=== PATIENT | male | born 1960 | race African-American/Black ===

== ENCOUNTER 2018-11-15 10:23 | Inpatient (IN) ==
[2018-11-15] MEDS ORDERED: ONDANSETRON 4 MG/2 ML VIAL ONE (10:37)
[2018-11-15] MEDS ORDERED: DILTIAZEM 25 MG/5 ML VIAL IV ONE ×2 (10:37→10:41)
[2018-11-15] MEDS ORDERED: dilTIAZem Drip 125 MG/125 ML PREMIX IV ONE (10:43)
[2018-11-15] MEDS ORDERED: SODIUM CHLORIDE 0.9% 1,000 ML IV STA (10:47)
[2018-11-15] MEDS ORDERED: ONDANSETRON 4 MG/2 ML VIAL IV STA (10:47)
[2018-11-15] MEDS ORDERED: DILTIAZEM 50 MG/10 ML VIAL IV STA (10:47)
[2018-11-15] MEDS ORDERED: dilTIAZem Drip 125 MG/125 ML PREMIX IV SCH (11:00)
[2018-11-15 11:13] LABS: Basophils # 0.1 10*3/uL (0.0-0.2); Basophils % 0.6 % (0.0-0.8); Eosinophils # 0.3 10*3/uL (0.0-0.87); Eosinophils % 3.1 % (0.00-10.9); Hematocrit 55.4 VOL% (42.0-52.0); Hemoglobin 17.5 GM/DL (14.0-18.0); Immature Granulocytes % 0.4 %; Immature Granulocytes Absolute 0.04 #; Lymphocytes # 2.7 10*3/uL (1.4-4.0); Lymphocytes % 26.5 % (21.2-54.2); Mean Corpuscular HGB Conc 31.6 GM/DL (32-36); Mean Corpuscular Volume 83.6 FL (87-102); Mean Platelet Volume 11.9 FL (9.6-12.0); Neutrophils % 64.4 % (38.7-73.9); Platelet Count 212 T/CUMM (130-400); Red Blood Count 6.63 MC/CUMM (3.8-5.5); Red Cell Distribution Width 16.1 % (9.3-17.3); White Blood Count 10.1 T/CUMM (4-12)
[2018-11-15 11:19] LABS: INR 1.2; PT Patient Result 13.4 SECS (9.6-12.2); Partial Thromboplastin Time 28.9 SECS (20.8-36.0)
[2018-11-15] MEDS ORDERED: ACETAMINOPHEN 325 MG TABLET PO PRN (11:29)
[2018-11-15] MEDS ORDERED: DOCUSATE SODIUM 100 MG CAPSULE PO PRN (11:29)
[2018-11-15] MEDS ORDERED: MAGNESIUM SULF RIDER 4 GM in PREMIX 1 EACH IV PRN (11:29)
[2018-11-15] MEDS ORDERED: ZALEPLON 5 MG CAPSULE PO PRN (11:29)
[2018-11-15] MEDS ORDERED: MAGNESIUM SULF RIDER 2 GM in PREMIX 1 EACH IV PRN (11:29)
[2018-11-15 11:36] LABS: Alanine Aminotransferase 47 U/L (16-61); Albumin 3.7 G/DL (3.4-5.0); Alkaline Phosphatase 49 U/L (45-117); Aspartate Amino Transferase 30 U/L (0-37); Blood Urea Nitrogen 24 MG/DL (7-18); Calcium 9.3 MG/DL (8.5-10.1); Estimated Glom Filtration Rate 64 ML/MIN; Glucose 121 MG/DL (74-106); Osmolality,Calculated 290.8 MOS/KG (273-304); Total Protein 7.6 G/DL (6.4-8.3); Troponin I 0.027 NG/ML (0.00-0.045)
[2018-11-15] MEDS ORDERED: INFLUENZA VIRUS VACCINE 0.5 ML SYRINGE IM ONE (12:41)
[2018-11-15] MEDS: ALBUTEROL/IPRATROPIUM 3 ML NEB RESP TX SCH ×3 (14:09→19:21)
[2018-11-15] MEDS ORDERED: AMIODARONE INJ 150 MG in DEXTROSE 5% 100 ML IV ONE (17:02)
[2018-11-15] MEDS ORDERED: AMIODARONE 150 MG/3 ML VIAL ONE ×2 (17:02→17:03)
[2018-11-15] MEDS ORDERED: AMIODARONE 450 MG/9 ML VIAL IV ONE (17:03)
[2018-11-15] MEDS ORDERED: DIGOXIN 0.5 MG/2 ML AMP IV ONE (17:05)
[2018-11-15] MEDS ORDERED: AMIODARONE INJ 450 MG in DEXTROSE 5% 241 ML IV SCH ×2 (17:30→23:30)
[2018-11-15] MEDS ORDERED: DIGOXIN 0.5 MG/2 ML AMP IV PRN (18:00)
[2018-11-15] MEDS: LATANOPROST 0.005% OPH SOLN 2.5 ML BOTTLE BOTH EYES SCH (22:32)
[2018-11-16 03:18] LABS: Basophils # 0.1 10*3/uL (0.0-0.2); Basophils % 0.6 % (0.0-0.8); Eosinophils # 0.4 10*3/uL (0.0-0.87); Eosinophils % 3.8 % (0.00-10.9); Hemoglobin 15.5 GM/DL (14.0-18.0); Immature Granulocytes % 0.2 %; Immature Granulocytes Absolute 0.02 #; Lymphocytes # 2.2 10*3/uL (1.4-4.0); Mean Corpuscular Volume 83.8 FL (87-102); Mean Platelet Volume 11.3 FL (9.6-12.0); Monocytes % 8.1 % (1.7-12.7); Neutrophils % 64.3 % (38.7-73.9); Platelet Count 175 T/CUMM (130-400); Red Blood Count 5.97 MC/CUMM (3.8-5.5); Red Cell Distribution Width 15.3 % (9.3-17.3); White Blood Count 9.4 T/CUMM (4-12)
[2018-11-16 03:42] LABS: Calcium 8.6 MG/DL (8.5-10.1); Osmolality,Calculated 287.8 MOS/KG (273-304)
[2018-11-16 03:48] LABS: Free T4 (Free Thyroxine) 1.06 NG/DL (0.76-1.46)
[2018-11-16 04:30] LABS: Barbiturates Screen,Urine Negative (Negative); Benzodiazepines Screen,Urine Negative (Negative); Cannabinoid Screen,Urine Negative (Negative); Opiate Screen,Urine Negative (Negative); Phencyclidine Screen,Urine Negative (Negative)
[2018-11-16] MEDS: FUROSEMIDE 40 MG TABLET PO SCH ×2 (07:15→13:00)
[2018-11-16] MEDS: ALBUTEROL/IPRATROPIUM 3 ML NEB RESP TX SCH ×4 (07:22→19:45)
[2018-11-16] MEDS: METOPROLOL SUCCINATE XL 100 MG TABLET PO SCH (08:36)
[2018-11-16] MEDS: PANTOPRAZOLE 40 MG TABLET PO SCH (08:36)
[2018-11-16] MEDS: CHOLECALCIFEROL 1,000 UNIT TABLET PO SCH (08:36)
[2018-11-16] MEDS: AMIODARONE 200 MG TABLET PO SCH ×2 (08:48→20:21)
[2018-11-16] MEDS ORDERED: hydrALAZINE 25 MG TABLET PO PRN (08:49)
[2018-11-16] MEDS ORDERED: lisinopriL 20 MG TABLET PO SCH (09:00)
[2018-11-16] MEDS ORDERED: RIVAROXABAN 20 MG TABLET PO SCH (09:00)
[2018-11-16] MEDS ORDERED: DABIGATRAN 150 MG CAPSULE PO SCH (09:00)
[2018-11-16] MEDS ORDERED: AMIODARONE 200 MG TABLET PO SCH (09:00)
[2018-11-16] MEDS: DIGOXIN 0.25 MG TABLET PO SCH ×2 (09:09→15:30)
[2018-11-16] MEDS ORDERED: DIGOXIN 0.125 MG TABLET PO SCH (13:00)
[2018-11-16] MEDS: LATANOPROST 0.005% OPH SOLN 2.5 ML BOTTLE BOTH EYES SCH (20:22)
[2018-11-17] MEDS: FUROSEMIDE 40 MG TABLET PO SCH ×2 (06:19→13:29)
[2018-11-17] MEDS: ALBUTEROL/IPRATROPIUM 3 ML NEB RESP TX SCH ×4 (07:57→19:44)
[2018-11-17] MEDS: METOPROLOL SUCCINATE XL 100 MG TABLET PO SCH (08:38)
[2018-11-17] MEDS: DABIGATRAN 150 MG CAPSULE PO SCH ×2 (08:38→21:12)
[2018-11-17] MEDS: CHOLECALCIFEROL 1,000 UNIT TABLET PO SCH (08:38)
[2018-11-17] MEDS: AMIODARONE 200 MG TABLET PO SCH ×2 (08:39→21:12)
[2018-11-17] MEDS: PANTOPRAZOLE 40 MG TABLET PO SCH (08:39)
[2018-11-17] MEDS ORDERED: DIGOXIN 0.125 MG TABLET PO SCH (13:00)
[2018-11-17] MEDS: LATANOPROST 0.005% OPH SOLN 2.5 ML BOTTLE BOTH EYES SCH (21:13)
[2018-11-18 04:52] LABS: Basophils # 0.1 10*3/uL (0.0-0.2); Basophils % 0.6 % (0.0-0.8); Eosinophils # 0.4 10*3/uL (0.0-0.87); Hematocrit 53.4 VOL% (42.0-52.0); Hemoglobin 16.8 GM/DL (14.0-18.0); Immature Granulocytes % 0.4 %; Immature Granulocytes Absolute 0.03 #; Lymphocytes # 2.3 10*3/uL (1.4-4.0); Mean Corpuscular HGB Conc 31.5 GM/DL (32-36); Mean Corpuscular Volume 82.5 FL (87-102); Mean Platelet Volume 11.5 FL (9.6-12.0); Monocytes % 8.3 % (1.7-12.7); Neutrophils % 57.7 % (38.7-73.9); Platelet Count 175 T/CUMM (130-400); Red Blood Count 6.47 MC/CUMM (3.8-5.5); Red Cell Distribution Width 15.9 % (9.3-17.3); White Blood Count 8.2 T/CUMM (4-12)
[2018-11-18 05:17] LABS: Calcium 8.8 MG/DL (8.5-10.1); Osmolality,Calculated 283.3 MOS/KG (273-304)
[2018-11-18] MEDS: ALBUTEROL/IPRATROPIUM 3 ML NEB RESP TX SCH ×4 (06:58→20:23)
[2018-11-18] MEDS ORDERED: PHENYLEPHRINE 10 MG/1 ML VIAL IV ONE (07:26)
[2018-11-18] MEDS ORDERED: LIDOCAINE 1% 20 ML VIAL ONE (08:27)
[2018-11-18] MEDS ORDERED: HEPARIN/NACL 0.9% 2 UNITS/ML 500 ML IV ONE (08:27)
[2018-11-18] MEDS ORDERED: HEPARIN/NACL 0.9% 2 UNITS/ML 1,000 ML IV ONE ×2 (08:27→11:13)
[2018-11-18] MEDS: CHOLECALCIFEROL 1,000 UNIT TABLET PO SCH (09:03)
[2018-11-18 09:35] LABS: Apearance,Urine CLEAR (Clear); Bacteria,Urine Occasional /HPF (Few); Bilirubin,Urine Negative (Negative); Blood, Urine Negative (Negative); Glucose,Urine (UA) Negative (Negative); Ketones,Urine Negative (Negative); Nitrite,Urine Negative (Negative); Protein,Urine Negative; RBC,Urine 5 /HPF (0-4); Urine Color Yellow (Yellow); Urine Specific Gravity 1.056 (1.001-1.035); Urine Urobilinogen < 2.0 EU/DL (0.2-1.0); WBC,Urine 1 /HPF (0-6)
[2018-11-18] MEDS ORDERED: NOREPINEPHRINE 4 MG/4 ML VIAL IV ONE (09:59)
[2018-11-18] MEDS ORDERED: HEPARIN 5,000 UNIT/1 ML VIAL ONE (10:42)
[2018-11-18] MEDS: FUROSEMIDE 40 MG TABLET PO SCH ×2 (11:42→15:32)
[2018-11-18] MEDS ORDERED: ASPIRIN EC 325 MG TABLET PO ONE (12:52)
[2018-11-18] MEDS ORDERED: ZALEPLON 5 MG CAPSULE PO PRN (12:52)
[2018-11-18] MEDS ORDERED: MORPHINE 4 MG/1 ML VIAL IV PRN (12:52)
[2018-11-18] MEDS ORDERED: ONDANSETRON 4 MG/2 ML VIAL IV PRN (12:52)
[2018-11-18] MEDS ORDERED: LIDOCAINE 2% 5 ML VIAL ONE (14:01)
[2018-11-18] MEDS ORDERED: propofoL 200 MG/20 ML VIAL IV ONE (14:01)
[2018-11-18] MEDS ORDERED: FUROSEMIDE 20 MG/2 ML VIAL ONE (14:02)
[2018-11-18] MEDS ORDERED: MIDAZOLAM 2 MG/2 ML VIAL ONE (14:02)
[2018-11-18] MEDS ORDERED: ePHEDrine 50 MG/ML AMP ONE (14:02)
[2018-11-18] MEDS ORDERED: fentaNYL 100 MCG/2 ML VIAL ONE (14:02)
[2018-11-18] MEDS ORDERED: SEVOFLURANE 1 UNIT/15 MINUTE INH ONE (14:02)
[2018-11-18] MEDS ORDERED: NEOSTIGMINE 10 MG/10 ML VIAL ONE (14:03)
[2018-11-18] MEDS ORDERED: ETOMIDATE 40 MG/20 ML VIAL IV ONE ×2 (14:03→14:04)
[2018-11-18] MEDS ORDERED: PHENYLEPHRINE 1 MG/10 ML SYRINGE IV ONE (14:03)
[2018-11-18] MEDS ORDERED: SUCCINYLCHOLINE 200 MG/10 ML VIAL ONE (14:03)
[2018-11-18] MEDS ORDERED: GLYCOPYRROLATE 0.4 MG/2 ML VIAL ONE ×2 (14:03)
[2018-11-18] MEDS ORDERED: ROCURONIUM 100 MG/10 ML VIAL IV ONE (14:03)
[2018-11-18] MEDS ORDERED: LABETALOL 100 MG/20 ML VIAL IV ONE (14:05)
[2018-11-18] MEDS: PANTOPRAZOLE 40 MG TABLET PO SCH (14:11)
[2018-11-18] MEDS: AMIODARONE 200 MG TABLET PO SCH (14:11)
[2018-11-18] MEDS: METOPROLOL SUCCINATE XL 100 MG TABLET PO SCH (14:12)
[2018-11-18] MEDS: FUROSEMIDE 40 MG/4 ML VIAL IV SCH (16:49)
[2018-11-18] MEDS ORDERED: ASPIRIN 300 MG SUPP RECTAL ONE (20:20)
[2018-11-18] MEDS ORDERED: PANTOPRAZOLE 40 MG TABLET PO SCH (21:00)
[2018-11-18] MEDS: ENOXAPARIN 150 MG/ML SYRINGE SUBCUT SCH (21:34)
[2018-11-18] MEDS: PANTOPRAZOLE 40 MG VIAL IV SCH (21:34)
[2018-11-18] MEDS: LATANOPROST 0.005% OPH SOLN 2.5 ML BOTTLE BOTH EYES SCH (21:49)
[2018-11-19 03:44] LABS: ABG Base Excess 2.3 MMOL/L (-2.5-2.5); ABG HCO3 26.4 MMOL/L (20-26); ABG Oxygen Saturation 98.2 % (95-100); ABG PCO2 38.1 MM HG (35-48); ABG PH 7.444 (7.35-7.45); ABG TCO2 21.2 MMOL/L (23-27); Allen Test Positive; Pt O2 Delivery Device Ventilator
[2018-11-19 04:31] LABS: Basophils % 0.4 % (0.0-0.8); Eosinophils # 0.1 10*3/uL (0.0-0.87); Eosinophils % 0.6 % (0.00-10.9); Hematocrit 54.7 VOL% (42.0-52.0); Hemoglobin 17.3 GM/DL (14.0-18.0); Immature Granulocytes % 0.4 %; Immature Granulocytes Absolute 0.04 #; Lymphocytes % 9.3 % (21.2-54.2); Mean Corpuscular HGB Conc 31.6 GM/DL (32-36); Mean Corpuscular Volume 83.8 FL (87-102); Mean Platelet Volume 11.7 FL (9.6-12.0); Monocytes % 7.6 % (1.7-12.7); Neutrophils % 81.7 % (38.7-73.9); Platelet Count 174 T/CUMM (130-400); Red Blood Count 6.53 MC/CUMM (3.8-5.5); Red Cell Distribution Width 16.1 % (9.3-17.3); White Blood Count 10.8 T/CUMM (4-12)
[2018-11-19 04:53] LABS: Calcium 8.7 MG/DL (8.5-10.1)
[2018-11-19] MEDS: ALBUTEROL/IPRATROPIUM 3 ML NEB RESP TX SCH ×4 (07:16→19:50)
[2018-11-19] MEDS: ENOXAPARIN 150 MG/ML SYRINGE SUBCUT SCH (09:29)
[2018-11-19] MEDS: FUROSEMIDE 40 MG/4 ML VIAL IV SCH ×2 (09:29→16:58)
[2018-11-19] MEDS: PANTOPRAZOLE 40 MG VIAL IV SCH (09:33)
[2018-11-19] MEDS: METOPROLOL TARTRATE 25 MG TABLET PO SCH ×2 (13:01→20:48)
[2018-11-19] MEDS: ISOSORBIDE MONONITRATE 30 MG TABLET PO SCH (13:01)
[2018-11-19] MEDS: CHOLECALCIFEROL 1,000 UNIT TABLET PO SCH (13:01)
[2018-11-19] MEDS: hydrALAZINE 10 MG TABLET PO SCH ×2 (14:30→20:47)
[2018-11-19] MEDS ORDERED: RIVAROXABAN 20 MG TABLET PO SCH (17:00)
[2018-11-19] MEDS: PANTOPRAZOLE 40 MG TABLET PO SCH (20:48)
[2018-11-19] MEDS ORDERED: DORZOLAMIDE-TIMOLOL BOTH EYES SCH (21:00)
[2018-11-19] MEDS: LATANOPROST 0.005% OPH SOLN 2.5 ML BOTTLE BOTH EYES SCH (22:22)
[2018-11-20 05:28] LABS: Basophils % 0.2 % (0.0-0.8); Eosinophils # 0.1 10*3/uL (0.0-0.87); Hemoglobin 16.6 GM/DL (14.0-18.0); Immature Granulocytes % 0.5 %; Immature Granulocytes Absolute 0.06 #; Lymphocytes # 1.6 10*3/uL (1.4-4.0); Lymphocytes % 12.9 % (21.2-54.2); Mean Corpuscular HGB Conc 31.9 GM/DL (32-36); Mean Corpuscular Volume 82.5 FL (87-102); Monocytes % 9.8 % (1.7-12.7); Neutrophils % 75.6 % (38.7-73.9); Platelet Count 156 T/CUMM (130-400); Red Cell Distribution Width 15.6 % (9.3-17.3)
[2018-11-20 05:54] LABS: Calcium 8.7 MG/DL (8.5-10.1)
[2018-11-20] MEDS ORDERED: SUGAMMADEX 200 MG/2 ML VIAL IV ONE (06:36)
[2018-11-20] MEDS: CHOLECALCIFEROL 1,000 UNIT TABLET PO SCH (08:49)
[2018-11-20] MEDS: METOPROLOL TARTRATE 25 MG TABLET PO SCH (08:49)
[2018-11-20] MEDS: hydrALAZINE 10 MG TABLET PO SCH (08:51)
[2018-11-20] MEDS: PANTOPRAZOLE 40 MG TABLET PO SCH (08:51)
[2018-11-20] MEDS: ISOSORBIDE MONONITRATE 30 MG TABLET PO SCH (08:51)
[2018-11-20] MEDS ORDERED: ASPIRIN EC 81 MG TABLET PO SCH (09:00)
[2018-11-20] MEDS: ALBUTEROL/IPRATROPIUM 3 ML NEB RESP TX SCH (09:21)
[2018-11-20] MEDS: FUROSEMIDE 40 MG/4 ML VIAL IV SCH (09:59)
[2018-11-20] MEDS ORDERED: METOPROLOL TARTRATE 50 MG TABLET PO SCH (11:46)
[2018-11-20 15:33] VITALS: BP 135/74
[2018-11-20] MEDS ORDERED: SACUBITRIL/VALSARTAN 49-51 MG TABLET PO SCH (21:00)
[2018-11-21] MEDS ORDERED: FUROSEMIDE 40 MG TABLET PO SCH (09:00)
== END 2018-11-20 16:43 | disposition home or self-care (01) | DRG 274 ==
LOC: N.ED 10:23 → N.EDINP 10:23 → N.ICU 12:13 → N.TELEN 11-16 09:52 → N.CC 11-18 13:13 → N.TELEN 11-19 16:12
PROVIDERS: ADMIT Internal Medicine Clinical Cardiac Electrophysiology; ATTEND Internal Medicine Clinical Cardiac Electrophysiology

== ENCOUNTER 2018-12-09 09:10 | Inpatient (IN) ==
[2018-12-09 09:53] LABS: Basophils % 0.4 % (0.0-0.8); Eosinophils # 0.1 10*3/uL (0.0-0.87); Eosinophils % 1.4 % (0.00-10.9); Hematocrit 42.5 VOL% (42.0-52.0); Hemoglobin 13.5 GM/DL (14.0-18.0); Immature Granulocytes % 0.2 %; Immature Granulocytes Absolute 0.02 #; Lymphocytes # 1.7 10*3/uL (1.4-4.0); Lymphocytes % 18.6 % (21.2-54.2); Mean Corpuscular HGB Conc 31.8 GM/DL (32-36); Mean Corpuscular Volume 81.6 FL (87-102); Mean Platelet Volume 10.9 FL (9.6-12.0); Monocytes % 10.1 % (1.7-12.7); Neutrophils % 69.3 % (38.7-73.9); Platelet Count 265 T/CUMM (130-400); Red Blood Count 5.21 MC/CUMM (3.8-5.5); Red Cell Distribution Width 14.5 % (9.3-17.3); White Blood Count 9.1 T/CUMM (4-12)
[2018-12-09 10:00] LABS: Apearance,Urine Slightly Hazy (Clear); Bacteria,Urine Many /HPF (Few); Bilirubin,Urine Negative (Negative); Blood, Urine Large mg/dL (Negative); Glucose,Urine (UA) Negative (Negative); Ketones,Urine Negative (Negative); Mucus,Urine Few /LPF (Occasional); Nitrite,Urine Negative (Negative); Protein,Urine 30 MG/DL; RBC,Urine 1142 /HPF (0-4); Urine Color Yellow (Yellow); Urine Specific Gravity 1.015 (1.001-1.035); WBC,Urine 209 /HPF (0-6)
[2018-12-09 10:04] LABS: INR 1.2; PT Patient Result 12.7 SECS (9.6-12.2); Partial Thromboplastin Time 34.8 SECS (20.8-36.0)
[2018-12-09 10:12] LABS: Calcium 8.6 MG/DL (8.5-10.1); Osmolality,Calculated 280.3 MOS/KG (273-304)
[2018-12-09] MEDS ORDERED: AMIODARONE 150 MG/3 ML VIAL ONE (10:20)
[2018-12-09] MEDS ORDERED: MAGNESIUM SULF RIDER 2 GM in PREMIX 1 EACH IV STA (10:25)
[2018-12-09] MEDS ORDERED: AMIODARONE INJ 150 MG in DEXTROSE 5% 100 ML IV ONE (10:26)
[2018-12-09] MEDS ORDERED: AMIODARONE 450 MG/9 ML VIAL IV ONE (10:33)
[2018-12-09 10:37] LABS: Basophils % 0.4 % (0.0-0.8); Eosinophils # 0.1 10*3/uL (0.0-0.87); Eosinophils % 1.6 % (0.00-10.9); Hematocrit 41.4 VOL% (42.0-52.0); Immature Granulocytes % 0.5 %; Immature Granulocytes Absolute 0.04 #; Lymphocytes # 1.5 10*3/uL (1.4-4.0); Lymphocytes % 17.2 % (21.2-54.2); Mean Corpuscular HGB Conc 31.4 GM/DL (32-36); Mean Corpuscular Volume 82.6 FL (87-102); Mean Platelet Volume 10.9 FL (9.6-12.0); Monocytes % 10.3 % (1.7-12.7); Platelet Count 253 T/CUMM (130-400); Red Blood Count 5.01 MC/CUMM (3.8-5.5); Red Cell Distribution Width 14.6 % (9.3-17.3); White Blood Count 8.6 T/CUMM (4-12)
[2018-12-09 10:58] LABS: Calcium 8.6 MG/DL (8.5-10.1); Osmolality,Calculated 285.8 MOS/KG (273-304)
[2018-12-09] MEDS ORDERED: ACETAMINOPHEN 325 MG TABLET PO PRN (13:10)
[2018-12-09] MEDS ORDERED: ONDANSETRON 4 MG/2 ML VIAL IV PRN (13:10)
[2018-12-09] MEDS ORDERED: LACTULOSE 20 GM/30 ML UDCUP PO PRN (13:10)
[2018-12-09] MEDS ORDERED: DOCUSATE SODIUM 100 MG CAPSULE PO PRN (13:10)
[2018-12-09] MEDS ORDERED: SODIUM CHLORIDE 0.9% 1,000 ML IV SCH (13:30)
[2018-12-09] MEDS ORDERED: SODIUM CHLORIDE 0.9% 100 ML IV ONE (13:31)
[2018-12-09 13:38] LABS: Thyroid Stimulating Hormone 2.45 uIU/ml (0.358-3.74)
[2018-12-09] MEDS: cefTRIAXone 1,000 MG in SYRINGE 1 EACH IV SCH (13:41)
[2018-12-09] MEDS ORDERED: ALBUTEROL/IPRATROPIUM 3 ML NEB RESP TX PRN (15:00)
[2018-12-09] MEDS ORDERED: INFLUENZA VIRUS VACCINE 0.5 ML SYRINGE IM ONE (16:18)
[2018-12-09] MEDS ORDERED: PNEUMOCOCCAL VACCINE (13 VALENT) 0.5 ML SYRINGE IM ONE (16:18)
[2018-12-09 17:04] LABS: Hematocrit 42.1 VOL% (42.0-52.0); Hemoglobin 13.3 GM/DL (14.0-18.0)
[2018-12-09] MEDS: AMIODARONE 200 MG TABLET PO SCH (17:16)
[2018-12-09] MEDS: hydrALAZINE 10 MG TABLET PO SCH ×2 (17:16→21:59)
[2018-12-09] MEDS: ENOXAPARIN 150 MG/ML SYRINGE SUBCUT SCH (17:17)
[2018-12-09] MEDS: METOPROLOL TARTRATE 50 MG TABLET PO SCH (21:59)
[2018-12-09] MEDS: LATANOPROST 0.005% OPH SOLN 2.5 ML BOTTLE BOTH EYES SCH (21:59)
[2018-12-09] MEDS: DORZOLAMIDE/TIMOLOL OPH SOLN 10 ML BOTTLE BOTH EYES SCH (22:02)
[2018-12-09] MEDS ORDERED: ZALEPLON 5 MG CAPSULE PO PRN (23:11)
[2018-12-10 01:09] LABS: Basophils % 0.3 % (0.0-0.8); Eosinophils # 0.1 10*3/uL (0.0-0.87); Eosinophils % 1.1 % (0.00-10.9); Hematocrit 43.1 VOL% (42.0-52.0); Hematocrit 43.9 VOL% (42.0-52.0); Hemoglobin 13.5 GM/DL (14.0-18.0); Hemoglobin 13.7 GM/DL (14.0-18.0); Immature Granulocytes % 0.4 %; Immature Granulocytes Absolute 0.05 #; Lymphocytes % 16.8 % (21.2-54.2); Mean Corpuscular HGB Conc 31.2 GM/DL (32-36); Mean Corpuscular Volume 82.2 FL (87-102); Mean Platelet Volume 11.5 FL (9.6-12.0); Monocytes % 6.8 % (1.7-12.7); Neutrophils % 74.6 % (38.7-73.9); Platelet Count 289 T/CUMM (130-400); Red Blood Count 5.34 MC/CUMM (3.8-5.5); Red Cell Distribution Width 14.6 % (9.3-17.3); White Blood Count 11.6 T/CUMM (4-12)
[2018-12-10 01:38] LABS: Calcium 8.9 MG/DL (8.5-10.1); Osmolality,Calculated 284.1 MOS/KG (273-304); Risk Ratio 3.61; VLDL CHOLESTEROL 12.6 MG/DL
[2018-12-10] MEDS: ENOXAPARIN 150 MG/ML SYRINGE SUBCUT SCH ×2 (05:24→15:33)
[2018-12-10 08:58] LABS: Hematocrit 43.3 VOL% (42.0-52.0); Hemoglobin 13.8 GM/DL (14.0-18.0)
[2018-12-10] MEDS ORDERED: FUROSEMIDE 20 MG TABLET PO SCH (09:00)
[2018-12-10] MEDS ORDERED: ETOMIDATE 40 MG/20 ML VIAL IV ONE (10:33)
[2018-12-10] MEDS ORDERED: PROPOFOL 200 MG/20 ML VIAL IV ONE (10:33)
[2018-12-10] MEDS: PANTOPRAZOLE 40 MG TABLET PO SCH (10:55)
[2018-12-10] MEDS: FUROSEMIDE 20 MG TABLET PO SCH (10:55)
[2018-12-10] MEDS: METOPROLOL TARTRATE 50 MG TABLET PO SCH ×2 (10:55→20:26)
[2018-12-10] MEDS: AMIODARONE 200 MG TABLET PO SCH (10:55)
[2018-12-10] MEDS: SACUBITRIL/VALSARTAN 49-51 MG TABLET PO SCH (10:55)
[2018-12-10] MEDS: hydrALAZINE 10 MG TABLET PO SCH ×3 (10:56→20:26)
[2018-12-10] MEDS: ISOSORBIDE MONONITRATE 30 MG TABLET PO SCH (10:56)
[2018-12-10] MEDS: CHOLECALCIFEROL 1,000 UNIT TABLET PO SCH (10:56)
[2018-12-10] MEDS: DORZOLAMIDE/TIMOLOL OPH SOLN 10 ML BOTTLE BOTH EYES SCH ×2 (10:59→20:26)
[2018-12-10] MEDS: cefTRIAXone 1,000 MG in SYRINGE 1 EACH IV SCH (14:10)
[2018-12-10 17:04] LABS: Hematocrit 43.3 VOL% (42.0-52.0); Hemoglobin 13.6 GM/DL (14.0-18.0)
[2018-12-10] MEDS: LATANOPROST 0.005% OPH SOLN 2.5 ML BOTTLE BOTH EYES SCH (20:26)
[2018-12-11] MEDS: ENOXAPARIN 150 MG/ML SYRINGE SUBCUT SCH (05:50)
[2018-12-11 05:54] LABS: Basophils # 0.1 10*3/uL (0.0-0.2); Basophils % 0.5 % (0.0-0.8); Eosinophils # 0.2 10*3/uL (0.0-0.87); Eosinophils % 2.4 % (0.00-10.9); Hematocrit 40.8 VOL% (42.0-52.0); Hemoglobin 12.9 GM/DL (14.0-18.0); Immature Granulocytes % 0.4 %; Immature Granulocytes Absolute 0.04 #; Lymphocytes # 1.6 10*3/uL (1.4-4.0); Lymphocytes % 16.3 % (21.2-54.2); Mean Corpuscular HGB Conc 31.6 GM/DL (32-36); Mean Corpuscular Volume 81.9 FL (87-102); Mean Platelet Volume 12.4 FL (9.6-12.0); Monocytes % 6.7 % (1.7-12.7); Neutrophils % 73.7 % (38.7-73.9); Platelet Count 246 T/CUMM (130-400); Red Blood Count 4.98 MC/CUMM (3.8-5.5); Red Cell Distribution Width 14.6 % (9.3-17.3); White Blood Count 9.9 T/CUMM (4-12)
[2018-12-11 06:15] LABS: Calcium 8.3 MG/DL (8.5-10.1); Osmolality,Calculated 282.3 MOS/KG (273-304)
[2018-12-11] MEDS ORDERED: DABIGATRAN 150 MG CAPSULE PO SCH (09:00)
[2018-12-11] MEDS: ISOSORBIDE MONONITRATE 30 MG TABLET PO SCH (09:19)
[2018-12-11] MEDS: CHOLECALCIFEROL 1,000 UNIT TABLET PO SCH (09:21)
[2018-12-11] MEDS: AMIODARONE 200 MG TABLET PO SCH (09:21)
[2018-12-11] MEDS: hydrALAZINE 10 MG TABLET PO SCH ×2 (09:21→15:01)
[2018-12-11] MEDS: PANTOPRAZOLE 40 MG TABLET PO SCH (09:21)
[2018-12-11] MEDS: FUROSEMIDE 20 MG TABLET PO SCH (09:21)
[2018-12-11] MEDS: METOPROLOL TARTRATE 50 MG TABLET PO SCH (09:21)
[2018-12-11] MEDS: SACUBITRIL/VALSARTAN 49-51 MG TABLET PO SCH (11:07)
[2018-12-11 12:32] VITALS: BP 111/70
[2018-12-11] MEDS: DORZOLAMIDE/TIMOLOL OPH SOLN 10 ML BOTTLE BOTH EYES SCH (12:47)
[2018-12-11] MEDS: cefTRIAXone 1,000 MG in SYRINGE 1 EACH IV SCH (14:54)
== END 2018-12-11 15:47 | disposition home or self-care (01) | DRG 813 ==
LOC: N.ED 09:10 → SUATTDRO 13:10 → N.EDINP 13:10 → N.TELEN 14:43
PROVIDERS: ADMIT Internal Medicine; ATTEND Family Medicine